=== PATIENT | female | born 1950 | race Caucasian/White ===

== ENCOUNTER 2018-12-25 15:43 | Outpatient (CLI) | payer MEDICARE ==
--- NOTE | 2018-12-25 21:53 | RAD ---
LUMBAR SPINE THREE VIEWS: 12/25/18 No fracture was seen. A grade I spondylolisthesis of L4 on L5 is present due to very significant face t arthritis at this level. Some arthritic change is seen in the facets at L5-S1, but not as intense a s the level above. Very slight disc space narrowing at L4-5 is seen. The SI joints appear normal. IMPRESSION: Spondylolisthesis of L4 on L5 with disc space narrowing. Severe arthritic changes of the facet joints at this level. Given the symptoms, MRI could be useful in determining neural impingement. POS: HOME
== END 2018-12-25 15:44 | disposition home or self-care (01) ==
LOC: BURRAD 15:43
PROVIDERS: ATTEND Physician Assistant
DX: M43.16 Spondylolisthesis, lumbar region (principal); M48.061 Spinal stenosis, lumbar region without neurogenic claudication; M47.816 Spondylosis without myelopathy or radiculopathy, lumbar region
CPT/HCPCS: 72100